=== PATIENT | female | born 1945 | race American Indian/Alaskan Native ===

== ENCOUNTER 2022-05-18 11:02 | Emergency (ER) | payer MEDICARE ==
[2022-05-18 11:39] VITALS: BP 140/67
== END 2022-05-18 19:26 | disposition left against medical advice (07) ==
LOC: ED 11:02
DX: G43.909 Migraine, unspecified, not intractable, without status migrainosus (principal); Z53.21 Procedure and treatment not carried out due to patient leaving prior to being seen by health care provider